=== PATIENT | female | born 1940 ===

== ENCOUNTER 2023-02-25 18:51 | Outpatient (REF) | payer MEDICARE, BC, SELFPAY ==
[2023-02-25 21:24] LABS: Uric Acid 3.2 mg/dL (2.6-6.0)
[2023-02-27 10:08] LABS: Lyme Ab w Rflx to Lyme Confirm Negative (Negative)
== END 2023-02-25 18:52 | disposition home or self-care (01) ==
LOC: LBN 18:51
PROVIDERS: Visit Provider Nurse Practitioner Family
DX: M25.532 Pain in left wrist (principal); M79.89 Other specified soft tissue disorders; Z01.84 Encounter for antibody response examination
CPT/HCPCS: 84550; 86618